=== PATIENT | male | born 1955 | race Caucasian/White ===

== ENCOUNTER 2017-06-18 09:21 | Outpatient (CLI) | payer BC ==
--- NOTE | 2017-06-18 10:59 | ULT ---
HEPATIC SONOGRAM WITH DUPLEX EVALUATION: HISTORY: Hepatitis C. FINDINGS: Echogenic stones are present within the dependent portion of the gallbladder lumen. There is no gall bladder wall thickening or pericholecystic fluid. Common duct is 0.4 cm diameter. The liver is heterogeneous without focal mass or intrahepatic biliary dilatation. The spleen is 10.1 cm in length. No free fluid is evident. Good color and spectral Doppler flow are present within the hepatic and splenic arteries. Portal dmitriy ous flow is towards the liver. Hepatic venous flow is towards the IVC. IMPRESSION: 1. Cholelithiasis. NO evidence of acute biliary obstruction. 2. Heterogeneous appearance of the liver without focal abnormality. No sonographic evidence of port al venous hypertension. POS: [facility]
== END 2017-06-18 09:22 | disposition home or self-care (01) ==
LOC: ULT 09:21
PROVIDERS: ATTEND Internal Medicine Gastroenterology
DX: B18.2 Chronic viral hepatitis C (principal); K80.20 Calculus of gallbladder without cholecystitis without obstruction
CPT/HCPCS: 76705

== ENCOUNTER 2018-03-28 05:51 | Day surgery (SDC) | payer BC ==
--- NOTE | 2018-03-27 08:51 | HP ---
HISTORY OF PRESENT ILLNESS: Bhavik Gaines is a 62-year-old male who was followed by Dr. Alba. He was visiting [place] when he experienced right upper quadrant pain, back radiation and nausea. He h as had several other these episodes. In [place], he was seen at [facility] on 02/17/2018. He had CMP revealing glucose 124, BUN 13, creatinine 1.17, GFR 67, AST 26, ALT 29, al kaline phosphatase 66, bilirubin 0.7, sodium 141, potassium 4.1, chloride 106 and carbon dioxide 24. EKG that was normal. White count 13, hemoglobin 15, platelet count 225,000, normal differential. U rinalysis normal. Troponins were normal. He has an ultrasound which showed gallstones and normal bi le duct caliber. The patient is here to discuss laparoscopic cystectomy and we will plan as an outpa tient. ALLERGIES: None. TOBACCO: None. ALCOHOL: Socially, rarely. PAST SURGICAL HISTORY: Right leg surgery. PAST MEDICAL HISTORY: Hypertension, hepatitis C, treated with resolution of viral load, ORIF of tib- fib in 2003. SOCIAL HISTORY: Patient works for [employer] maintenance. MEDICATIONS: Atenolol 20 mg a day, ibuprofen 200 mg p.r.n., aspirin 81 mg a day. REVIEW OF SYSTEMS: Noncontributory. FAMILY HISTORY: Noncontributory. PHYSICAL EXAMINATION: VITAL SIGNS: 275 pounds, 74 inches, 118/82, 71, 98.6 degrees. HEENT: Unremarkable. LUNGS: Clear to auscultation. CARDIAC: Regular rate and rhythm without murmur or gallop. ABDOMEN: Soft, nontender. EXTREMITIES: Unremarkable. ASSESSMENT AND PLAN: Cholecystitis, cholecystitis, normal liver function tests, normal bile duct yoselin iber. PLAN: Laparoscopic video cholecystectomy. Risk of infection, bleeding, visceral and biliary injury explained. Questions answered. We will plan this outpatient surgery for next week.
[2018-03-27 12:21] VITALS: BMI 34.9
[2018-03-28] MEDS ORDERED: Ketorolac Tromethamine 30 MG/ML VIAL ONE (06:05)
[2018-03-28] MEDS ORDERED: CEFAZOLIN/Water 2 GM/20 ML SYRINGE ONE (06:05)
[2018-03-28] MEDS ORDERED: Fentanyl 100 MCG/2 ML VIAL ONE ×5 (06:48→10:02)
[2018-03-28] MEDS ORDERED: Famotidine/PF 20 mg/2ml Vial ONE (07:28)
[2018-03-28] MEDS ORDERED: Ondansetron PF 4 MG/2 ML Vial ONE (07:28)
[2018-03-28] MEDS ORDERED: Bupivacaine HCl 0.5%/Epinephrine 1:200,000/PF 30 ml Vial ONE (07:28)
[2018-03-28] MEDS ORDERED: Midazolam HCl 2 mg/2 ml Vial ONE (07:28)
[2018-03-28] MEDS ORDERED: SUGAMMADEX SODIUM 500 MG/5 ML VIAL ONE (09:11)
[2018-03-28] MEDS ORDERED: HYDROmorphone 2 MG/ML VIAL ONE (09:20)
[2018-03-28] MEDS ORDERED: hydrALAZINE 20 MG/ML VIAL ONE (09:42)
--- NOTE | 2018-03-28 11:37 | OP ---
DATE OF PROCEDURE: 03/28/2018 PREOPERATIVE DIAGNOSIS: Chronic cholecystitis, cholelithiasis. POSTOPERATIVE DIAGNOSIS: Chronic cholecystitis, cholelithiasis. PROCEDURE: Laparoscopic video cholecystectomy. SURGEON: Dr. Mir Naqvi ANESTHESIA: General. Local 0.5% Marcaine with epinephrine. PROCEDURE: The patient was taken to the operating room where under general anesthesia, the abdomen w as clipped of hair, prepared with ChloraPrep, draped in routine fashion. Local anesthetic infiltrate d in the skin and subcutaneous tissue about each port site. Infraumbilical incision made and pneumop eritoneum to 15 mmHg obtained with the Veress needle, replacing it with a 5 port, video laparoscope i nserted. Right subxiphoid incision made and 11 port placed. Right subcostal incision made mid clavi cular anterior axillary lines and 5 ports placed. Liver appeared to be fatty. There were inflammato ry omental adhesions over the fundus of the gallbladder, indicative of past episodes of cholecystitis . Gallbladder was distended and wall was thickened. Omental adhesions taken down with blunt dissect ion using cautery for hemostasis. Fundus grasped and reflected cephalad. Infundibulum grasped and l aterally. Cystic artery and duct dissected free. Critical view obtained. Cystic artery and duct do ubly clipped proximally, divided, and gallbladder dissected free from the liver bed, removing the gal lbladder and stones submitted to pathology. Hemostasis gained with the cautery. Good hemostasis ens ured. Irrigant and pneumoperitoneum evacuated. All this instruments removed and all skin incisions approximated with interrupted subdermal 4-0 Monocryl and DermaGlue applied.
[2018-03-28] MEDS ORDERED: PROPOFOL 200 MG/20 ML VIAL ONE (13:27)
[2018-03-28] MEDS ORDERED: Metoclopramide HCl 10 MG/2 ML VIAL ONE (13:27)
[2018-03-28] MEDS ORDERED: Dexamethasone 20 MG/5 ML VIAL ONE (13:27)
[2018-03-28] MEDS ORDERED: Glycopyrrolate 0.2 MG/ML 5 ML SYRINGE ONE (13:27)
[2018-03-28] MEDS ORDERED: Lidocaine 1% PF 5 ML VIAL ONE (13:27)
== END 2018-03-28 11:30 | disposition home or self-care (01) ==
LOC: SDC 05:51
PROVIDERS: ATTEND Specialist
PROC: 0FT44ZZ Resection of Gallbladder, Percutaneous Endoscopic Approach (ICD-10-PCS; principal; 2018-03-28)
DX: K81.1 Chronic cholecystitis (principal); I10 Essential (primary) hypertension; Z79.899 Other long term (current) drug therapy
CPT/HCPCS: 88304; 96374; 96375; 96376; J0131; J0360; J0670; J1170; J1885; J2250; J2405; J3010; S0028

== ENCOUNTER 2018-10-09 15:00 | Outpatient (CLI) | payer BC ==
--- NOTE | 2018-10-09 15:20 | RAD ---
Lumbar spine 2 views INDICATION: Left-sided sciatica FINDINGS: There are 5 lumbar type vertebra. There is a very slight retrolisthesis of L1 on L2 and T12 on L1. There is mild multilevel disc degenerative disease. No acute fracture is evident. SI joints are normal appearing. IMPRESSION: Mild spondylosis of the lumbar spine. Mild retrolisthesis of L1 on L2 and T12 on L1.
== END 2018-10-09 15:01 | disposition home or self-care (01) ==
LOC: BICRAD 15:00
PROVIDERS: ATTEND Family Medicine
DX: M54.32 Sciatica, left side (principal); M47.816 Spondylosis without myelopathy or radiculopathy, lumbar region; M43.16 Spondylolisthesis, lumbar region
CPT/HCPCS: 72100

== ENCOUNTER 2018-12-30 14:58 | Outpatient (CLI) | payer BC ==
--- NOTE | 2018-12-30 16:15 | MRI ---
MRI Lumbar Spine WO Con History: M [age] lumbar radiculopathy Comparison: Lumbar spine radiographs October 09, 2018 Findings: No hydronephrosis. Aortic contour is normal. No retroperitoneal periaortic adenopathy. Paraspinal musculature is symmetric. No marrow infiltrative process. The conus medullaris terminates near the inferior endplate of T12. Levels are as follows: L1/L2: Normal disc. Low-grade bilateral subfrontal disc osteophyte complexes. Mild right facet joint effusion. No neural foraminal or spinal canal narrowing. L2/L3: Small bilateral subsequent foraminal posterior disc osteophyte complexes. Mild left neural for aminal narrowing. Mild facet arthropathy. No neural foraminal narrowing. L3/L4: Low-grade degenerative disc space height loss. Broad-based posterior disc bulge, greatest in t he left foraminal zone. Moderate left and mild right neural foraminal narrowing. Mild hypertrophic facet arthropathy. L4/L5: Broad-based posterior disc bulge. Mild hypertrophic facet arthropathy. Moderate bilateral neur al foraminal narrowing with abutment of both traversing nerve roots. Small synovial cysts of the right facet joint. L5/S1: Relatively normal disc. No neural foraminal or spinal canal narrowing. Impression: Mild multilevel spondylosis, greatest at L4/L5.
--- NOTE | 2018-12-30 18:20 | RAD ---
FOUR VIEWS LUMBAR SPINE 12/30/18 HISTORY: Lumbar radiculopathy. Patient states lumbar radiculopathy with pain extending down left leg. COMPARISON: 10/09/18. FINDINGS: There is a transitional vertebra at the lumbosacral junction. Facet degenerative changes are seen in the lower lumbar spine. The vertebral body height are within normal limits, and no fracture or sublux ation is seen. There is suggestion of trace retrolisthesis of L1 on L2 and T12 on L1 on the prior exa m which is not appreciated on today's study. No abnormal translational motion is seen between the fle xion and extension views of the lumbar spine. Surgical clips overlie the right upper quadrant. IMPRESSION: Mild degenerative changes in the lumbar spine. No fracture or subluxation is appreciated. POS: [facility]
== END 2018-12-30 14:59 | disposition home or self-care (01) ==
LOC: BICMRI 14:58
PROVIDERS: ATTEND Neurological Surgery
DX: M47.26 Other spondylosis with radiculopathy, lumbar region (principal)
CPT/HCPCS: 72110; 72148

== ENCOUNTER 2025-03-15 12:05 | Outpatient (CLI) | payer MEDICARE ==
[~2025-03-15 12:05] MED LIST: Iopamidol 370 76% 100 ML VIAL ONE
[2025-03-15 13:06] LABS: Estimated GFR - POC 60.0
== END 2025-03-15 12:06 | disposition home or self-care (01) ==
LOC: CT 12:05
PROVIDERS: ATTEND Internal Medicine Gastroenterology
DX: R10.32 Left lower quadrant pain (principal); K62.89 Other specified diseases of anus and rectum; R93.2 Abnormal findings on diagnostic imaging of liver and biliary tract; K76.9 Liver disease, unspecified; C79.9 Secondary malignant neoplasm of unspecified site; Z86.19 Personal history of other infectious and parasitic diseases
CPT/HCPCS: 36415; 74177; 80048; 82565; Q9967